=== PATIENT | male | born 1995 | race Caucasian/White ===

== ENCOUNTER 2021-11-02 10:53 | Emergency (ER) | payer OTHER, SELFPAY ==
--- NOTE | ~2021-11-02 | XR_ITS ---
XR chest 1V portable DATE: 11/02/2021 11:31 INDICATION: Covid-positive TECHNIQUE: Portable upright AP chest on 11/02/2021 at 1125 hours COMPARISON: None FINDINGS: Normal heart size. No hilar or mediastinal enlargement. No pulmonary infiltrate or consolid ation, pleural effusion or pulmonary vascular congestion or pneumothorax. Included skeletal structures are unremarkable. IMPRESSION: No active cardiopulmonary disease Reviewed, dictated and finalized at location A.
[2021-11-02 10:56] VITALS: BP 133/99; PULSE 104; RESP 18; TEMP 37.4; O2SAT 96
--- NOTE | 2021-11-02 11:17 | ED.URI ---
HPI - URI/Sore Throat General Chief Complaint: Upper Respiratory Infection Stated Complaint: covid positive, fever chills Time Seen by Provider: 11/02/21 11:05 History of Present Illness HPI Narrative: 26-year-old male here for evaluation of fevers, chills, rhinorrhea and cough for the past 3 days. States that he became short of breath today which prompted his ED visit. Patient tested positive for COVID 2 days ago. He has been using ibuprofen with good relief of his symptoms. Denies chest pain, leg swelling. He has no past medical history and he is healthy. Related Data Allergies Allergy/AdvReac Type Severity Reaction Status Date / Time No Known Allergies Allergy Verified 11/02/21 11:44 Review of Systems Review of Systems: Gen: Reports fevers and chills Eyes: Denies eye pain or visual change ENT: Reports congestion Respiratory: Reports shortness of breath or cough CV: Denies chest pain or palpitations GI: Denies abdominal pain nausea, emesis or diarrhea denies burning, urgency, frequency or hematuria Musculoskeletal: Denies back pain or muscle pain Neuro: Denies numbness, tingling, weakness or focal weakness Skin: Denies rash Except as documented, all other systems reviewed and negative Exam Narrative: APPEARANCE: Well appearing, no pain in distress, well-nourished. Head: Normocephalic and atraumatic. EYES: PERRLA/EOMI, conjunctivae clear NOSE: No nasal drainage EARS: External ear normal in appearance THROAT: Oropharynx is clear. Mucous membranes are moist. NECK: Supple. No adenopathy, no masses. RESPIRATORY: Airway patent, respirations nonlabored. Clear to auscultation bilaterally, no rales, rhonchi, wheezing. CARDIOVASCULAR: Regular rate and rhythm without murmurs, rubs, or gallops. ABDOMINAL: Normoactive bowel sounds. Soft, nontender, nondistended. No rebound tenderness or guarding. MUSCULOSKELETAL: Extremities are warm and well-perfused. Moves all extremities well. No edema. NEURO: Normal speech. No focal neurologic deficits. SKIN: Skin is warm and dry. No rashes. PSYCHIATRIC: Normal affect/mood. Course Vital Signs Vital signs: Vital Signs Temperature 99.4 F 11/02/21 10:56 Pulse Rate 104 H 11/02/21 10:56 Respiratory Rate 18 11/02/21 10:56 Blood Pressure 133/99 H 11/02/21 10:56 Pulse Oximetry 96 11/02/21 10:56 Oxygen Delivery Room Air 11/02/21 10:56 Temperature 99.4 F 11/02/21 10:56 Pulse Rate 88 11/02/21 11:52 Respiratory Rate 18 11/02/21 11:52 Blood Pressure 138/72 11/02/21 11:52 Pulse Oximetry 99 11/02/21 11:52 Oxygen Delivery Room Air 11/02/21 10:56 MDM - URI/Sore Throat MDM Narrative Medical decision making narrative: 26-year-old female here who is COVID-positive here for evaluation of respiratory infectious symptoms. His vital signs are reassuring, his lungs are clear to auscultation. Chest x-ray was obtained given his sensation of shortness of breath, which was negative. Will discharge home to follow-up with his primary care provider. Discussed return precautions. Discharge Plan Discharge Clinical Impression: COVID-19 Patient Disposition: Home, Self-Care Condition: Stable Instructions: Antibiotic Form Additional Instructions: Your chest x-ray was reassuring today. Quarantine for 5 days, if on day 5 you are feeling better have been fever free for 24 hours without medication you may wear a mask around others. Continue supportive care for COVID, drink plenty of fluids, get plenty of rest, alternate between Tylenol and ibuprofen. You can take 1000mg of Tylenol every 6 hours and 800 mg Motrin/ibuprofen every 8 hours. Return to the emergency department if you develop chest pain, you pass out, your fingers or toes look blue, or you feel weak. I have referred you to a primary care physician to follow-up with her symptom resolution. Follow-up/Referrals: PHYSICIAN,AGING DEPARTMENT SUPERVISOR [Primary Care Provider] - Adam Mobley MD [Physician] - 1 Week
[2021-11-02 11:52] VITALS: BP 138/72; PULSE 88; RESP 18; O2SAT 99
== END 2021-11-02 11:53 | disposition home or self-care (01) ==
PROVIDERS: Emergency Provider Emergency Medicine
DX: U07.1 COVID-19 (principal)
CPT/HCPCS: 71045; 99283